=== PATIENT | female | born 1955 | race African-American/Black ===

== ENCOUNTER 2018-11-23 00:44 | Emergency (ER) | payer BC ==
[~2018-11-23] VITALS: Ht 167.6 cm; Wt 93.0 kg
[2018-11-23 01:33] VITALS: BP 121/59
[2018-11-23 01:42] LABS: HEMATOCRIT 33.4 % (36.0-48.0); MEAN CORPUSCULAR HEMOGLOBIN 29.3 pg (28.0-32.0); MEAN CORPUSCULAR VOLUME 88.8 fL (81.0-99.0); PLATELET 173 x1000/uL (130-400); RED BLOOD CELL COUNT 3.76 mill/uL (4.2-5.4); RED CELL DISTRIBUTION WIDTH 14.7 % (11.6-14.6)
== END 2018-11-23 02:04 | disposition home or self-care (01) ==
LOC: ER 00:44
DX: R04.0 Epistaxis (principal)
CPT/HCPCS: 36415; 85027; 99283; Z7610